=== PATIENT | male | born 1940 | race Asian ===

== ENCOUNTER 2018-07-12 16:31 | Emergency (ER) | payer OTHER ==
[~2018-07-12] VITALS: Ht 157.5 cm; Wt 65.8 kg
[2018-07-12 16:39] VITALS: Ht 157.5 cm; Wt 65.8 kg
[2018-07-12 17:50] VITALS: BP 164/91
== END 2018-07-12 17:50 | disposition home or self-care (01) ==
LOC: ED 16:31
DX: F43.9 Reaction to severe stress, unspecified (principal); E11.9 Type 2 diabetes mellitus without complications; I10 Essential (primary) hypertension; V49.9XXA Car occupant (driver) (passenger) injured in unspecified traffic accident, initial encounter; Y93.I9 Activity, other involving external motion; Y92.413 State road as the place of occurrence of the external cause; Y99.8 Other external cause status